=== PATIENT | female | born 1955 | race Caucasian/White ===

== ENCOUNTER 2016-09-09 14:39 | Emergency (ER) | payer MEDICAID, OTHER ==
[~2016-09-09] VITALS: Ht 165.1 cm; Wt 80.0 kg
[2016-09-09 14:44] VITALS: BP 132/76; PULSE 90; RESP 18; TEMP 98.8; O2SAT 94
[2016-09-09] MEDS ORDERED: VENTAER INH (15:11)
[2016-09-09] MEDS ORDERED: ZITHTAB PO (15:11)
--- NOTE | 2016-09-09 15:13 | PD ---
HPI Chief Complaint: Cold / Flu Symptoms Time Seen by Provider: 15:07 Travel History International Travel<30 days: No Contact w/Intl Traveler<30days: No Traveled to known affect area: No History of Present Illness HPI This patient complains of cough and congestion and runny nose. Duration 3 weeks. Severity is moderate. She is a smoker. No fever or chest pain. PFSH Past Medical History Medical History: Denies Significant Hx Respiratory: Yes (PNA) Tetanus Vaccination: < 5 Years Influenza Vaccination: No ?: Not Menopausal: Yes Past Surgical History Surgical History: No Previous Surgery Social History Alcohol Use: Yes (Occ.) Tobacco Use: Yes (4-5 cigarettes/day) Substance Use: No Allergies-Medications (Allergen,Severity, Reaction): Coded Allergies: No Known Allergies (Unverified , 09/09/16) Reported Meds & Prescriptions Reported Meds & Active Scripts Active No Active Prescriptions or Reported Medications Review of Systems General / Constitutional: No: Fever HENT: No: Headaches Respiratory: Positive: Cough Physical Exam Narrative RESPIRATORY: Respiratory effort unlabored, no retractions or use of accessory muscles. Breath sounds reveal some rhonchi and minor expiratory wheeze and are symmetric. CARDIOVASCULAR: Regular rate and rhythm without murmur. Extremities showed no edema or varicosities. NECK: Symmetrical appearance, midline trachea. No mass or crepitus. Thyroid without enlargement, tenderness, or mass. Throat clear Data Data Last Documented VS Vital Signs Date Time Temp Pulse Resp B/P Pulse Ox O2 Delivery O2 Flow Rate FiO2 09/09/16 14:50 18 94 Room Air 09/09/16 14:44 98.8 90 132/76 [facility] Medical Decision Making Medical Screen Exam Complete: Yes Emergency Medical Condition: Yes Medical Record Reviewed: Yes Differential Diagnosis Bronchitis, pneumonia, URI, COPD Narrative Course I have reviewed the patient's electronic medical record. Prescribed her an albuterol inhaler Prescribed her Zithromax course Need to quit smoking The patient was advised to follow up with their physician and return if they worsen. Diagnosis Primary Impression: Acute bronchitis Qualified Code: J20.9 - Acute bronchitis, unspecified organism Additional Instructions: The patient was advised to follow up with their physician and return if they worsen. Quit smoking Med/Other Pt SpecificInfo: Prescription(s) given Scripts Albuterol 18 GM Inh (Ventolin Hfa 18 GM Inh)90 Mcg/Act Aer2 Puff INH Q4H PRN ( SHORTNESS OF BREATH) #1 INHALER Ref 0 Prov:Sheldon Ventura MD 09/09/16 Azithromycin (Zithromax Z-Timmy)250 Mg Eywl093 Mg PO DIRECTED #1 DSPK Ref 0 500 MG (2 tabs) day 1, then 1 tab days 2-5. Prov:Sheldon Ventura MD 09/09/16 Disposition: 01 DISCHARGE HOME Condition: Stable Sheldon Ventura MD Sep 09, 2016 15:13
[2016-09-09] MEDS ORDERED: KETOROLAC TROMETHAMINE 60 MG/2 ML (IM) VIAL IM ONE (15:30)
[2016-09-09] MEDS ORDERED: ORPHENADRINE INJ 60 MG/2 ML AMP IM ONE (15:30)
== END 2016-09-09 15:20 | disposition home or self-care (01) ==
LOC: PHED 14:39
DX: J20.9 Acute bronchitis, unspecified (principal); F17.210 Nicotine dependence, cigarettes, uncomplicated
CPT/HCPCS: 99283

== ENCOUNTER 2016-12-07 13:35 | Emergency (ER) | payer MEDICAID ==
[~2016-12-07] VITALS: Ht 165.1 cm; Wt 80.6 kg
[~2016-12-07 13:35] MED LIST: VENTAER INH; ZITHTAB PO
[2016-12-07 13:44] VITALS: BP 129/69; PULSE 84; RESP 16; TEMP 98.4; O2SAT 97
[2016-12-07] MEDS ORDERED: PHEN1LIQ60 PO (13:48)
--- NOTE | 2016-12-07 15:23 | PD ---
HPI Chief Complaint: Cold / Flu Symptoms Time Seen by Provider: 14:20 Travel History International Travel<30 days: No Contact w/Intl Traveler<30days: No Traveled to known affect area: No History of Present Illness HPI 61-year-old female presents to the emergency room for evaluation of mildly productive cough for the past 2 weeks. Patient states she can feel the phlegm come up into her her throat but cannot spit it out. She has associated sore throat, left ear pain, and congestion. She has been taking zogl-iky-lewvial medications without relief in symptoms. She states the cough is severe and the worst at night. She had associated chills but no fever, nausea, or vomiting. Denies chronic medical conditions or daily medications. Patient smokes cigarettes. PFSH Past Medical History Medical History: Denies Significant Hx Respiratory: Yes (PNA) Tetanus Vaccination: < 5 Years Influenza Vaccination: No ?: Not Menopausal: Yes Social History Alcohol Use: Yes (Occ.) Tobacco Use: Yes ("Off and on") Substance Use: No Allergies-Medications (Allergen,Severity, Reaction): Coded Allergies: No Known Allergies (Unverified , 12/07/16) Reported Meds & Prescriptions Reported Meds & Active Scripts Active Promethazine-Codeine Liq 6.25-10 Mg/5 Ml Syrp 5 Ml PO Q6H PRN Tessalon Perles (Benzonatate) 100 Mg Cap 100 Mg PO TID PRN 7 Days Ventolin Hfa 18 GM Inh (Albuterol Sulfate) 90 Mcg/Act Aer 2 Puff INH Q4H PRN Reported Nyquil Severe Cold/Flu Liq (Oownojtaqqmor-Dvpzoempyt-YR-Apap Liq) 5-6.25-10-325 Mg/15 Ml Liq 15 Ml PO DIRECTED Review of Systems Except as stated in HPI: all other systems reviewed are Neg Physical Exam Narrative GENERAL: Well-nourished, well-developed female in no acute distress. Afebrile. Ambulatory. SKIN: Focused skin assessment warm/dry. HEAD: Normocephalic. EYES: No scleral icterus. No injection or drainage. ENT: Mucosa pink and moist. No erythema or exudates. No uvular edema. No uvular , palatal, or tonsillar deviation. Airway patent. EARS: Bilateral pinnae and external canals appear within normal limits. Bilateral tympanic membranes without erythema, dullness or perforation. NECK: Supple, trachea midline. No JVD or lymphadenopathy. CARDIOVASCULAR: Regular rate and rhythm without murmurs, gallops, or rubs. RESPIRATORY: Breath sounds equal bilaterally. No accessory muscle use. No crackles, rales, wheezes, or rhonchi. Data Data Last Documented VS Vital Signs Date Time Temp Pulse Resp B/P Pulse Ox O2 Delivery O2 Flow Rate FiO2 12/07/16 14:00 18 97 Room Air 12/07/16 13:44 98.4 84 129/69 Orders Chest, Pa & Lat (12/07/16 ) [facility] Medical Decision Making Medical Screen Exam Complete: Yes Emergency Medical Condition: Yes Medical Record Reviewed: Yes Differential Diagnosis Bronchitis versus pneumonia versus upper respiratory infection Narrative Course 61-year-old female presents to the emergency room for evaluation of mildly productive cough for the past 2 weeks. She has associated upper respiratory symptoms. No objective fevers. Patient is afebrile and well-appearing in the emergency room. Vital signs stable. She is coughing continuously the entire time that she has in the emergency room. Lungs sounds are clear and equal bilaterally. This is bronchitis. Patient discharged with prescriptions for Tessalon Perles and promethazine with codeine. Told to follow up with her primary care physician and return for worsening symptoms. She understands and agrees to plan. Diagnosis Primary Impression: Acute bronchitis Qualified Code: J20.9 - Acute bronchitis, unspecified organism Referrals: Primary Care Physician Patient Instructions: Acute Bronchitis (ED), General Instructions Additional Instructions: Rest and drink plenty of fluids. Take Tessalon Perles as directed, as needed for pain. Follow-up with a primary care physician. Return to the emergency room for worsening symptoms. Scripts Promethazine-Codeine Liq 6.25-10 Mg/5 Ml Syrp5 Ml PO Q6H PRN (COUGH AND/OR COLD SYMPTOMS) #80 ML Ref 0 Prov:Reagan Handley MD 12/07/16 Benzonatate (Tessalon Perles)100 Mg Fiy488 Mg PO TID PRN (COUGH) 7 Days Ref 0 Prov:Reagan Handley MD 12/07/16 Disposition: 01 DISCHARGE HOME Condition: Stable Frances Kim Dec 07, 2016 15:23
[2016-12-07] MEDS ORDERED: BENZ100 PO (15:24)
[2016-12-07] MEDS ORDERED: PROM6.256 PO ×2 (15:24→15:25)
--- NOTE | 2016-12-07 15:32 | RADHPO ---
EXAM DATE/TIME: 12/07/2016 14:47 [facility] COMPARISON: No previous studies available for comparison. INDICATIONS : Patient has had productive cough and short of breath for one week. MEDICAL HISTORY : None. SURGICAL HISTORY : None. ENCOUNTER: Initial ACUITY: 1 week PAIN SCORE: 0/10 LOCATION: Bilateral chest FINDINGS: PA and lateral views of the chest. The lungs are clear. Cardiomediastinal silhouette within normal li mits. No evidence of pleural effusion or pneumothorax. CONCLUSION: No acute cardiopulmonary disease identified. Sd Bennett MD on December 07, 2016 at 15:30 Board Certified Radiologist. This report was verified electronically.
== END 2016-12-07 15:48 | disposition home or self-care (01) ==
LOC: PHEFT 13:35
DX: J20.9 Acute bronchitis, unspecified (principal); Z72.0 Tobacco use
CPT/HCPCS: 71020; 99284